=== PATIENT | male | born 1980 | race Caucasian/White ===

== ENCOUNTER 2020-09-05 13:08 | Emergency (ER) | payer BC, MEDICAID ==
[~2020-09-05] VITALS: Ht 188 cm; Wt 77.3 kg
[~2020-09-05 13:08] MED LIST: NO HOME MEDS
[2020-09-05 14:37] VITALS: BP 119/92
== END 2020-09-05 15:22 | disposition home or self-care (01) ==
LOC: ER 13:09
DX: R43.8 Other disturbances of smell and taste (principal); R53.83 Other fatigue; Z20.828 Contact with and (suspected) exposure to other viral communicable diseases
CPT/HCPCS: 36415; 87635; 99283